=== PATIENT | male | born 1960 | race Caucasian/White ===

== ENCOUNTER 2024-03-22 08:32 | Emergency (ER) | payer OTHER ==
--- NOTE | 2024-03-22 09:17 | ER ---
Nurse's Notes [facility] Name: Chuy House Age: 63 yrs Sex: Male : 1960 Arrival Date: 03/22/2024 Time: 08:32 Bed 7 Private MD: Diagnosis: Salcido's palsy Presentation: 03/22 09:07 Chief complaint: EMS states: L sided headache and facial droop when pt awoke at 0130 ph this morning. Coronavirus screen: Vaccine status: Patient reports receiving the 2nd dose of the covid vaccine. Ebola Screen: No symptoms or risks identified at this time. Initial Sepsis Screen: Does the patient meet any 2 criteria? No. Patient's initial sepsis screen is negative. Does the patient have a suspected source of infection? No. Patient's initial sepsis screen is negative. Risk Assessment: Do you want to hurt yourself or someone else? Patient reports no desire to harm self or others. Onset of symptoms was March 22, 2024. 09:07 Method Of Arrival: EMS: [facility] 09:07 Acuity: NELLY 3 ph 09:11 Care prior to arrival: IV initiated. 20 GA, in the left antecubital area, Glucose ph check: 93. Triage Assessment: 09:08 General: Appears in no apparent distress. Behavior is calm, cooperative. Pain: ph Complains of pain in left sikh. Neuro: Level of Consciousness is awake, alert, obeys commands, Oriented to person, place, time, situation, Pillowcase Cutter are equal bilaterally Moves all extremities. Gait is steady, Speech is normal, Facial droop on left, Facial symmetry: tongue is midline, Pupils are PERRLA, Intact Reports headache in left frontal area, x3 weeks. Cardiovascular: Capillary refill < 3 seconds in bilateral fingers Patient's skin is warm and dry. Respiratory: Airway is patent Respiratory effort is even, unlabored. GI: No signs and/or symptoms were reported involving the gastrointestinal system. Derm: Skin is pink, warm \T\ dry. Historical: - Allergies: :08 No Known Allergies; ph - PMHx: 09:08 Hypertensive disorder; ph - Immunization history:: Adult Immunizations up to date. - Infectious Disease History:: Denies. - Social history:: Smoking status: unknown. Screenin: [facility] ED Fall Risk Assessment (Adult) History of falling in the last 3 months, ph including since admission No falls in past 3 months (0 pts) Confusion or Disorientation No (0 pts) Intoxicated or Sedated No (0 pts) Impaired Gait Yes (1 pt) Mobility Assist Device Used No (0 pt) Altered Elimination No (0 pt) Score/Fall Risk Level 0 - 2 = Low Risk Oriented to surroundings, Maintained a safe environment, Hourly rounding (assess needs \T\ fall precautionary measures) done. Abuse screen: Denies threats or abuse. Denies injuries from another. Nutritional screening: No deficits noted. Tuberculosis screening: No symptoms or risk factors identified. Assessment: 09:41 General: SEE TRIAGE ASSESSMENT. ph 10:30 Reassessment: Awaiting transport back to [facility]. ph Vital Signs: 09:07 BP 163 / 95; Pulse 72; Resp 18; Temp 97.5; Pulse Ox 100% on R/A; Weight 80.74 kg; ph Height 5 ft. 11 in. ; 09:41 BP 138 / 91; Pulse 78; Resp 18; Temp 97.5; Pulse Ox 100% on R/A; ph 09:07 Body Mass Index 24.83 (80.74 kg, 180.34 cm) ph ED Course: 08:58 Patient arrived in ED. iw 09:04 Emanuel Murray MD is Attending Physician. rt 09:06 Sandra Miguel, CARMITA is Primary Nurse. ph 09:08 Triage completed. ph 09:09 Arm band placed on Patient placed in an exam room. ph 09:10 Patient has correct armband on for positive identification. Call light in reach. Side ph rails up X 1. Pulse ox on. NIBP on. Door closed. Noise minimized. 09:11 Maintain EMS IV. Dressing intact. Good blood return noted. Site clean \T\ dry. Gauge \T\ ph site: 20 LAC. Flushed with 10 mL NS. 09:40 Provided Education on: T tape L eye closed during sleep and administer eye drops every ph few hours to keep moist. 09:40 No provider procedures requiring assistance completed. IV discontinued, intact, ph bleeding controlled, No redness/swelling at site. Pressure dressing applied. Administered Medications: 09:39 Drug: Ketorolac IVP 15 mg IVP once Route: IVP; Site: left antecubital; ph 09:40 Follow up: Response: No adverse reaction ph 09:39 Drug: predniSONE PO 40 mg PO once Route: PO; ph 09:40 Follow up: Response: No adverse reaction ph 09:39 Drug: valACYclovir PO 1000 mg PO once Route: PO; ph 09:40 Follow up: Response: No adverse reaction ph Medication: 09:10 VIS not applicable for this client. ph Outcome: 09:17 Discharge ordered by . rt 09:40 Discharged to Law Enforcement ph 09:40 Condition: good 09:40 Discharge instructions given to patient, Instructed on discharge instructions, follow up and referral plans. medication usage, Demonstrated understanding of instructions, follow-up care, medications, Prescriptions given X 3, 12:08 Patient left the ED. ph Signatures: Avani Stringer RN RN Sandra Miguel RN RN Emanuel Murray MD MD rt
--- NOTE | 2024-03-22 09:17 | EDPHYS ---
Physician Documentation [facility] Name: Chuy House Age: 63 yrs Sex: Male : 1960 Arrival Date: 03/22/2024 Time: 08:32 Bed 7 Private MD: ED Physician Emanuel Murray HPI: 03/22 10:58 This 63 yrs old Male presents to ER via EMS with complaints of facial droop. rt 10:58 Patient presents to the ED with left-sided facial droop. This was first noticed at 1:30 rt AM. Patient denies any numbness, tingling, other weakness. Denies other acute complaints at this time, symptoms are moderate in severity, no other aggravating or alleviating factors.. Historical: - Allergies: 09:08 No Known Allergies; ph - PMHx: 09:08 Hypertensive disorder; ph - Immunization history:: Adult Immunizations up to date. - Infectious Disease History:: Denies. - Social history:: Smoking status: unknown. ROS: 10:58 Constitutional: Negative for fever, chills, and weight loss, Cardiovascular: Negative rt for chest pain, palpitations, and edema, Respiratory: Negative for shortness of breath, cough, wheezing, and pleuritic chest pain, Abdomen/GI: Negative for abdominal pain, nausea, vomiting, diarrhea, and constipation, MS/Extremity: Negative for injury and deformity, Skin: Negative for injury, rash, and discoloration, 10:58 Neuro: Positive for Facial droop, Negative for Numbness, extremity weakness, Exam: 10:58 Constitutional: This is a well developed, well nourished patient who is awake, alert, rt and in no acute distress. Chest/axilla: Normal chest wall appearance and motion. Nontender with no deformity. No lesions are appreciated. Cardiovascular: Regular rate and rhythm with a normal S1 and S2. No gallops, murmurs, or rubs. Normal PMI, no JVD. No pulse deficits. Respiratory: Lungs have equal breath sounds bilaterally, clear to auscultation and percussion. No rales, rhonchi or wheezes noted. No increased work of breathing, no retractions or nasal flaring. Abdomen/GI: Soft, non-tender, with normal bowel sounds. No distension or tympany. No guarding or rebound. No evidence of tenderness throughout. Skin: Warm, dry with normal turgor. Normal color with no rashes, no lesions, and no evidence of cellulitis. MS/ Extremity: Pulses equal, no cyanosis. Neurovascular intact. Full, normal range of motion. 10:58 Neuro: Left-sided facial droop, the left eyebrow is completely paralyzed, the right side of the face is not affected. No numbness on the face, cranial nerves otherwise intact, strength and sensation intact in upper and lower extremities. No visual field deficits, extraocular muscles are intact, Vital Signs: 09:07 BP 163 / 95; Pulse 72; Resp 18; Temp 97.5; Pulse Ox 100% on R/A; Weight 80.74 kg; ph Height 5 ft. 11 in. ; 09:41 BP 138 / 91; Pulse 78; Resp 18; Temp 97.5; Pulse Ox 100% on R/A; ph 09:07 Body Mass Index 24.83 (80.74 kg, 180.34 cm) ph MDM: 09:04 Medical Screening Exam initiated rt 10:58 Differential Diagnosis Salciod's palsy, CVA. Data reviewed: vital signs, nurses notes. I rt considered the following discharge prescriptions or medication management in the emergency department Medications were administered in the Emergency Department. See MAR. Test considered but Not performed: CT: Symptoms consistent with Salcido's palsy, CT scans are not indicated. Care significantly affected by the following chronic conditions: Hypertension. Counseling: I had a detailed discussion with the patient and/or guardian regarding the historical points, exam findings, and any diagnostic results supporting the discharge/admit diagnosis, the need for outpatient follow up, to return to the emergency department if symptoms worsen or persist or if there are any questions or concerns that arise at home. ED course: Patient is complete involvement of the upper face, consistent with a Salcido's palsy, I do not suspect acute CVA as the etiology, does not require further workup or admission at this time. I discussed eye care and further management with the patient.. Administered Medications: 09:39 Drug: Ketorolac IVP 15 mg IVP once Route: IVP; Site: left antecubital; ph 09:40 Follow up: Response: No adverse reaction ph 09:39 Drug: predniSONE PO 40 mg PO once Route: PO; ph 09:40 Follow up: Response: No adverse reaction ph 09:39 Drug: valACYclovir PO 1000 mg PO once Route: PO; ph 09:40 Follow up: Response: No adverse reaction ph Disposition Summary: 03/22/24 09:17 Discharge Ordered Notes: Location: Home rt Problem: new rt Symptoms: are unchanged rt Condition: Stable rt Diagnosis - Salcido's palsy rt Followup: rt - With: Private Physician - When: 2 - 3 days - Reason: Discharge Instructions: - Discharge Summary Sheet rt - Salcido's Palsy, Adult rt Forms: - Medication Reconciliation Form rt - Antibiotic Education rt - Prescription Opioid Use rt - Patient Portal Instructions rt - Leadership Thank You Letter rt Prescriptions: - Valtrex 1 gram Oral tablet - take 1 tablet ORAL route 3 times per day for 7 days; 21 tablet; Refills: 0, rt Product Selection Permitted - Visine 0.05 % Ophthalmic drops - instill 2 drop OPHTHALMIC route every 4 to 6 hours; 2 Each; Refills: 0, Product rt Selection Permitted - Prednisone 20 mg Oral Tablet - take 2 tablets ORAL route once daily for 5 days; 10 tablet; Refills: 0, Product rt Selection Permitted Signatures: Sandra Miguel RN RN ph Emanuel Murray MD MD rt
[2024-03-22] MEDS ORDERED: VALACYCLOVIR 500 MG TAB ONE (09:27)
[2024-03-22] MEDS ORDERED: predniSONE 20 MG TAB ONE (09:28)
[2024-03-22] MEDS ORDERED: KETOROLAC 30 MG/ML INJ ONE (09:28)
[2024-03-22 12:45] VITALS: TEMP 97.5; O2SAT 100
[2024-03-22 12:46] VITALS: BP 138/91
== END 2024-03-22 12:08 | disposition home or self-care (01) ==
LOC: ER 08:32
DX: G51.0 Bell's palsy (principal); I10 Essential (primary) hypertension
CPT/HCPCS: 96374; 99284; J7512